=== PATIENT | male | born 1955 | race Caucasian/White ===

== ENCOUNTER 2025-03-20 22:16 | Inpatient (IN) | payer OTHER ==
[~2025-03-20] VITALS: Ht 172.7 cm; Wt 83.9 kg
[~2025-03-20 22:16] MED LIST: ASPI81CH; ASPI81CH PO; ASPI81EC; BUDE10.22 PO; CARV6.25; CARV6.25 PO; CLOP75; CYCL10 PO; Coreg12.5 MG PO; ENAL10; ENAL2.5; FISH1000; Fish Oil 10001000 MG PO; GABA300 PO; GAS X; Glimepiride2 MG PO; HYDACE5 PO; IBUP600; LIRA0.6P; LISI20; LISI20 PO; METF500 PO; METO25ER; OMEP10ER; OMEP20ER PO; OXYACE5T PO; PRAV40 PO; PRED20 PO; PROACE100 PO; Pravastatin Sod40 MG PO; Prilosec Otc20 MG PO; RXOXYACE PO; SPIR25 PO; Zithromax250 MG PO; [UNRECOGNIZED DRUG - REMARK]; [UNRECOGNIZED DRUG - REMARK]; [UNRECOGNIZED DRUG - REMARK]
[2025-03-20] MEDS ORDERED: Haloperidol Lactate Inj. 5 MG/ML Injection IM ONE (22:35)
[2025-03-21] MEDS ORDERED: LORazepam 2 MG/ML 1ML Injection IM ONE (00:30)
[2025-03-21 02:08] LABS: pH Blood Venous 7.29 (7.34-7.37)
[2025-03-21] MEDS ORDERED: Haloperidol Lactate Inj. 5 MG/ML Injection IV ONE (02:10)
[2025-03-21] MEDS ORDERED: LORazepam 2 MG/ML 1ML Injection IV PRN ×3 (02:10→20:35)
[2025-03-21 02:11] LABS: BASOPHILS ABSOLUTE AUTO 0.04 K/mm3 (0.00-0.23); BASOPHILS PERCENT AUTO 1 % (0-2); EOSINOPHILS ABSOLUTE AUTO 0.71 K/mm3 (0.00-0.68); EOSINOPHILS PERCENT AUTO 9 % (0-6); Hematocrit 36.5 % (37.0-53.0); Hemoglobin 12.1 g/dL (13.5-17.5); IMMATURE GRAN ABSOLUTE AUTO 0.02 K/mm3 (0.00-0.10); IMMATURE GRAN PERCENT AUTO 0 % (0-1); LYMPHOCYTES ABSOLUTE AUTO 2.28 K/mm3 (0.84-5.20); LYMPHOCYTES PERCENT AUTO 28 % (21-46); MONOCYTES ABSOLUTE AUTO 0.65 K/mm3 (0.16-1.47); MONOCYTES PERCENT AUTO 8 % (4-13); Mean Corpuscular HGB Conc 33.2 g/dL (31.5-36.5); Mean Corpuscular Volume 93 fL (80-100); NEUTROPHILS ABSOLUTE AUTO 4.34 K/mm3 (1.96-9.15); NEUTROPHILS PERCENT AUTO 54 % (41-73); NRBC ABSOLUTE 0.00 K/mm3 (0.00-0.02); NRBC Auto 0.0 /100 WBC (0.0-0.2); Platelet Count 213 K/mm3 (150-400); RDW Coefficient Variation 13.2 % (11.7-14.2); RDW Standard Deviation 44.8 fL (35.1-46.3)
[2025-03-21 02:27] LABS: Source, Urine Clean Catch
[2025-03-21 02:33] LABS: Bilirubin, Urine Neg (Neg); Glucose Qualitative, Urine Neg (Neg); Ketones, Urine Neg (Neg); Leukocyte Esterase, Urine Neg (Neg); Protein, Urine 2+ (Neg); Specific Gravity, Urine 1.020 (1.003-1.022); Urobilinogen, Urine NORM (Normal)
[2025-03-21 02:34] LABS: Ethanol (Alcohol), Blood, Med <3 mg/dL; Salicylate <1.7 mg/dL (2.8-20.0)
[2025-03-21 02:43] LABS: Acetaminophen, Random <2.0 ug/mL (10.0-30.0); Alanine Aminotransfer (ALT/SGP 13 U/L (12-78); Albumin, Blood 3.3 g/dL (3.4-5.0); Albumin/Globulin Ratio 0.9 (0.8-1.8); Anion Gap 12 mmol/L (3-11); Aspartate Aminotrans (AST/SGOT 20 U/L (12-37); Bilirubin, Total 0.5 mg/dL (0.1-1.0); Blood Urea Nitrogen 44 mg/dL (8-24); CO2, Blood 19 mmol/L (21-32); Calcium, Blood 8.4 mg/dL (8.5-10.1); Chloride, Blood 116 mmol/L (98-108); Creatinine, Blood 2.94 mg/dL (0.60-1.20); Globulin, Blood 3.5 g/dL (2.2-4.0); Glucose, Blood 97 mg/dL (70-99); Potassium, Blood 6.1 mmol/L (3.5-5.5); Sodium, Blood 141 mmol/L (136-145); Total Protein, Blood 6.8 g/dL (6.4-8.2)
[2025-03-21 02:53] LABS: U Amphetamine Screen Not Detected; U Barbituate Screen Not Detected; U Benzodiazapine Screen Not Detected; U Buprenorphine Screen Not Detected; U Cannabinoids Screen Not Detected; U Cocaine Screen Not Detected; U Methadone Screen Not Detected; U Methamphetamine Screen Not Detected; U Opiates Screen Not Detected; U Oxycodone Screen Not Detected; U Phencyclidine Screen Not Detected
[2025-03-21 02:54] LABS: Color, Urine Yellow (P-Yellow)
[2025-03-21 02:57] LABS: Red Blood Cells, Urine TNTC /hpf (0-2); White Blood Cells, Urine Not Seen /hpf (0-5)
[2025-03-21] MEDS ORDERED: NS 1,000 ML IV SCH ×3 (04:30→14:10)
[2025-03-21] MEDS ORDERED: Ondansetron HCl 2 MG / ML 2ML Vial IV PRN (05:10)
[2025-03-21] MEDS ORDERED: CALCIUM GLUC IN NACL, ISO-OSM 50 ML IV ONE (06:15)
[2025-03-21] MEDS ORDERED: Heparin Sodium,Porcine 5,000 UNIT/0.5 ML SDV SC SCH (09:00)
[2025-03-21 10:09] LABS: Anion Gap 11.0 mmol/L (3-11); Blood Urea Nitrogen 40.0 mg/dL (8-24); CO2, Blood 22.0 mmol/L (21-32); Calcium, Blood 8.4 mg/dL (8.5-10.1); Chloride, Blood 115.0 mmol/L (98-108); Creatinine, Blood 2.5 mg/dL (0.60-1.20); Glucose, Blood 92.0 mg/dL (70-99); Potassium, Blood 5.9 mmol/L (3.5-5.5); Sodium, Blood 142.0 mmol/L (136-145)
[2025-03-21 10:49] LABS: Anion Gap 10.0 mmol/L (3-11); Blood Urea Nitrogen 39.0 mg/dL (8-24); CO2, Blood 21.0 mmol/L (21-32); Calcium, Blood 8.3 mg/dL (8.5-10.1); Chloride, Blood 115.0 mmol/L (98-108); Creatinine, Blood 2.39 mg/dL (0.60-1.20); Glucose, Blood 94.0 mg/dL (70-99); Potassium, Blood 6.0 mmol/L (3.5-5.5); Sodium, Blood 140.0 mmol/L (136-145)
[2025-03-21] MEDS ORDERED: NEURONTIN300 MG PO (12:54)
[2025-03-21] MEDS ORDERED: QUETIAPINE FUMA25 MG PO (12:55)
[2025-03-21] MEDS ORDERED: QUETIAPINE FUM10011 PO (12:56)
[2025-03-21] MEDS ORDERED: Ativan1 MG PO (12:57)
[2025-03-21 15:06] LABS: Anion Gap 11.0 mmol/L (3-11); Blood Urea Nitrogen 35.0 mg/dL (8-24); CO2, Blood 18.0 mmol/L (21-32); Calcium, Blood 8.8 mg/dL (8.5-10.1); Chloride, Blood 117.0 mmol/L (98-108); Creatinine, Blood 2.22 mg/dL (0.60-1.20); Glucose, Blood 93.0 mg/dL (70-99); Potassium, Blood 7.0 mmol/L (3.5-5.5); Sodium, Blood 139.0 mmol/L (136-145)
--- NOTE | 2025-03-21 15:21 | NUR ---
Maladaptive and disruptive conduct order received and processed. Aggressive and problematic behavior appears non-volitional i.e. induced by underlying metabolic encephalopathy. Safety plan implemented with 1 to 1 monitoring. Will follow up.
--- NOTE | 2025-03-21 15:23 | NUR ---
RECIEVED REPORT FOR PT COMING TO MED FLOOR ROOM 345 AT 1500. CRITICAL LAB VALUE CALLED TO ER AND FORWARDED TO THIS RN AT [address] KNUTSON AND NOTIFIED HER. ORDER TO STOP ADMIT TO MEDICAL FLOOR AND CHANGE PT TO PCU STATUS. CALLED ER AND STOPPED TRANSFER OF PT TO MEDICAL FLOOR. STATUS CHANGED TO PCU. NOTIFIED MANUEL RN WHO NOTIFIED THE RN PARA PROFESSIONAL. CALLED DR PITTS BACK AND SHE REQUESTED THE PT TO BE CHANGED TO PCU STATUS AND ADMITTED THERE. ADMISSION ORDER NOW REFLECTS PCU STATUS. MD AWARE PT DID NOT TRANSFER TO ROOM 345 FROM THE ED AND HE IS STILL IN THE ER.
[2025-03-21] MEDS ORDERED: Sodium Bicarb 8.4% Inj 150 MEQ in Dextrose 5% 1,000 ML IV ONE (15:35)
[2025-03-21] MEDS ORDERED: LORazepam 2 MG/ML 1ML Injection IV ONE (18:00)
[2025-03-21] MEDS ORDERED: Haloperidol Lactate Inj. 5 MG/ML Injection IV PRN (18:00)
[2025-03-21] MEDS ORDERED: Sodium Bicarb 8.4% Inj 150 MEQ in Dextrose 5% 1,000 ML IV SCH ×2 (18:30→21:00)
--- NOTE | 2025-03-21 18:59 | NUR ---
PT ARRIVES TO PCU VIA GURNEY. PT YELLING AND CUSSING AT STAFF AT TIME. MULTIPLE STAFF REQUIRED TO PULL PT OVER TO BED DUE TO COMBATIVENESS. DR BUSTAMANTE CALLED FOR CONSULT. CALLED TO TALK ABOUT PLAN OF CARE AND WILL CALL BACK WHEN SHE KNOWS WHAT SHE WANTS TO DO. PT MEDICATED PER EMAR. NO DIRECTABLE AND PULLING AT CORDS AND WIRES. REPORT GIVEN TO KIKE SANCHEZ TO ASSUME CARE OF PT.
[2025-03-21] MEDS ORDERED: Insulin Regular 100 UNIT/ML 10ML Vial IV SCH (19:00)
[2025-03-21 19:29] LABS: Anion Gap 7.0 mmol/L (3-11); Blood Urea Nitrogen 30.0 mg/dL (8-24); CO2, Blood 23.0 mmol/L (21-32); Calcium, Blood 9.1 mg/dL (8.5-10.1); Chloride, Blood 115.0 mmol/L (98-108); Creatinine, Blood 1.86 mg/dL (0.60-1.20); Glucose, Blood 118.0 mg/dL (70-99); Potassium, Blood 5.3 mmol/L (3.5-5.5); Sodium, Blood 140.0 mmol/L (136-145)
[2025-03-21 20:05] VITALS: BP 149/76
[2025-03-21] MEDS ORDERED: Morphine Sulfate 20 MG/1ML 1 ML Oral Syringe SL PRN (20:25)
[2025-03-21] MEDS ORDERED: Morphine Sulfate 10 MG/ML 1MLSYR IV PRN (20:25)
[2025-03-21] MEDS ORDERED: Atropine Sulfate 1% Opth Soln 2ML BTL SL PRN (20:25)
--- NOTE | 2025-03-21 21:31 | NUR ---
PATIENT UPDATE THIS RN ASSUMED CARE OF PATIENT AT 1900. BEDSIDE SHIFT REPORT DONE WITH OSORIO SANCHEZ. OSORIO RN FINISHING GIVING ORDERS FOR HYPERKALEMIA. BICARB GTT INFUSING PER EMAR. PT AGGITATED. CURSING AND ATTEMPTING TO HIT STAFF. SITTER AT BEDSIDE. MEDICATED PER EMAR FOR AGGITATION WITH GOOD RESULTS WHEN PT LEFT ALONE AND HAVING LOW STIMULATION FROM STAFF. EASILY AGGITATED BY WIRES. REACHING OUT AND TALKING TO SELF. NOT FOLLOWING COMMANDS. CALL RECEIVED FROM KEYONA AND HER SISTER LIZ REGARDING DISCUSSING PLAN OF CARE FOR PATIENT. THIS RN SPOKE TO BOTH REGARDING CURRENT TREATMENT BEING DONE AND PATIENT'S DEMENTIA AND THE NEED TO SEDATE AND POSSIBLY RESTRAIN PATIENT TO GIVEN NECESSARY CARE/MEDS. THE AND SISTER HAD QUESTIONS REGARDING HOSPICE CARE AND WHAT THAT WOULD LOOK LIKE GOING FORWARD. THIS RN SPOKE TO THEM ABOUT MAKING THE PATIENT COMFORT CARE AND WHETHER THEY WOULD LIKE US TO HELP FIND PLACEMENT VERSUS GOING HOME ON HOSPICE. THIS RN ANSWERED QUESTIONS TO THE BEST OF HER ABILITY. THE AND SISTER STATED THAT THEY WOULD LIKE TO TALK ABOUT THE OPTIONS AND WOULD CALL THIS RN BACK. KEYONA'S NUMBER IS [phone] APPROXIMATELY 30 MINUTES LATER THE KEYONA AND SISTER LIZ CALLED THIS RN BACK AND STATED THAT THEY WOULD LIKE TO MOVE FORWARD WITH GETTING THE PATIENT ON HOSPICE AND STOPPING INVASIVE TREATMENT. THE WOULD LIKE ASSISTANCE FINDING HIM PLACEMENT AT [facility] OR [facility] IF POSSIBLE D/T HIS CARE BEING DIFFICULT FOR HER. CARE MANAGEMENT CONSULT PLACED ALONG WITH A HOSPICE REFERRAL ORDER. FAMILY DECLINED FURTHER QUESTIONS. THIS RN SPOKE TO THEM REGARDING CODE STATUS AND CHANGING PATIENT TO A DNR, FAMILY AGREED TO CODE STATUS OF DNR. NO FURTHER QUESTIONS AT THIS TIME. THIS RN ASSURED THEM THAT THEY COULD CALL BACK ANYTIME WITH FURTHER QUESTIONS. THIS RN CALLED MD KOENIG REGARDING PLAN OF CARE CHANGE. VERBAL ORDER TO MAKE COMFORT CARE AND CHANGE CODE STATUS. MD WILLINGHAM NOTIFIED OF PLAN OF CARE CHANGE BY ADMINISTRATION INTERNDANIEL WOLFF. CLINICAL SITTER AT BEDSIDE FOR SAFETY. TELE DC'D. PT MEDICATED PER EMAR FOR AGGITATION. SEE COMFORT CARE CHARTING. BED IN LOWEST POSITION AND CALL LIGHT WITHIN REACH.
--- NOTE | 2025-03-22 03:41 | NUR ---
TRANSFER NOTE SEE PREVIOUS NOTE. NO ACUTE CHANGES SINCE PREVIOUS NOTE. PT HAS BEEN RESTING COMFORTABLY SINCE GIVEN IV ATIVAN. PT REPOSITIONING SELF. INCONTINENT OF URINE, ATTENDS IN PLACE. PT STILL REPOSITIONING SELF, ASSISTANCE GIVEN PRN. SEIZURE PADS IN PLACE ON RAILS D/T PT OCCASIONALLY PUTTING LEGS OVER SIDE. SITTER REMAINS AT BEDSIDE. THIS RN GAVE REPORT TO KEITH SANCHEZ ON MEDICAL FLOOR. PT TO BE TRANSFERRED TO [facility] AT THIS TIME.
--- NOTE | 2025-03-22 04:23 | NUR ---
TRANSFER NOTE HANDOFF RECEIVED FROM HOUSEKEEPER CLEANING COOKINGDANIEL STOKES. PT TRANSFERED TO ROOM VIA GURNEY. PERSONAL POSSESSIONS WITH PT. PT BECAME AGITATED AND AGGRESSIVE ON TRANSFER. ANXIETY MEDICATION GIVEN WITH GOOD EFFECT.
--- NOTE | 2025-03-22 16:54 | NUR ---
PT HAS BEEN AOX0 THROUGHOUT SHIFT. PT STARTS TO BECOME RESTLESS AND ANXIOUS TRYING TO ROLL OR SIT UP HE ALSO GET MORE AGITATED WITH CARE AND EXTRA TOUCHING WHEN FAMILY IS AT BEDSIDE. PT HAS BEEN TREATED PER EMAR FOR ANXIETY AND PAIN. PT IS CURRENTLY RESTING PEACEFULLY CONDOM CATH IN PLACE. PT'S CASEMANGER REQUESTED PHYSICAL THERAPY EVALUATE AND TREAT. SPOKE WITH DR PITTS AND ORDER WAS DC'D NOT APPROPRIATED WITH PT'S MENTATION. SITTER IS IN ROOM MONITORING 1:1.
--- NOTE | 2025-03-22 17:21 | NUR ---
ATTEMPTED TO SEE PT THIS EVENING, HE ASKS IF WE CAN SPEAK IN THE AM ALONG WITH HIS . PLAN TO SEE THEM IN THE MORNING FOR GOALS OF CARE CONVERSATION.
--- NOTE | 2025-03-23 04:23 | NUR ---
SHIFT SUMMARY ADMITTED FOR ENCEPHALOPATHY. DNR CODE/COMFORT CARE. PLAN IS FOR [facility] PLACEMENT VS. HOME W/CAREGIVERS. ON RA. BEDREST. 2 PERSON CHANGE. PALLIATIVE CARE IS CONSULTED. ANXIETY MEDICATION HAS BEEN EFFECTIVE. A&O TO SELF ONLY, NOT REDIRECTABLE. INCONTINENT.
[2025-03-23] MEDS ORDERED: Haloperidol Lactate 2 MG/ML Conc 1ML Dose PO PRN (09:25)
[2025-03-23] MEDS ORDERED: Ativan1 MG PO (12:29)
[2025-03-23] MEDS ORDERED: HALO2 PO (12:30)
[2025-03-23] MEDS ORDERED: ATROPINE SULFATE2 M1 SL (12:30)
[2025-03-23] MEDS ORDERED: MORP20L SL (12:32)
[2025-03-23] MEDS ORDERED: TRANSDERM-SCOP1 EA10 TD (12:32)
--- NOTE | 2025-03-23 13:18 | NUR ---
DISCHARGE NOTE PT DISCHARGED TO [facility]. COMFORT CARE MEASURES IMPLEMENTED. HOSPICE TO ADMIT PATIENT SAME DAY. [facility] SENT [facility] TRANSPORT. FAMILY NOT AT BEDSIDE AT TIME OF DISCHARGE BUT ARE AWARE OF DISCHARGE DATE AND TIME. IV REMOVED PRIOR TO DC. MEDIATED PRIOR TO DC.
--- NOTE | 2025-03-23 15:30 | NUR ---
2 PILL BOTTLES WERE IN DRAWER THAT WERE NOT SENT TO [facility] WITH PATIENT. AFTER SPEAKING WITH [facility] ANDERSON SHE STATED SHE DOES NOT REQUIRE THESE ANYMORE. PT HAD A PRESCRIPTION FOR LORAZEPAM 1 MG. AND QUETIAPINE 100 MG. ASKING PHARMACY HOW TO DISPOSE OF. CALLED AND LEFT MESSAGE WITH PATIENTS FAMILY THAT WE WILL BE DISPOSING OF THESE PER [facility]'S OK, HOSPICE TO DISPENSE COMFORT CARE MEDS TO [facility].
== END 2025-03-23 13:13 | disposition hospice, home (50) | DRG 92 ==
LOC: ER 22:16 → ERHOLD 22:17 → ER 22:21 → MEDS 03-21 15:14 → PCU 03-21 15:35 → MEDS 03-21 15:35 → PCU 03-21 15:43 → MEDS 03-22 03:57 → ENPENDDIS 03-23 10:19 → MEDS 03-23 13:13
PROVIDERS: Emergency Medicine; Family Medicine; ADMIT Internal Medicine
DX: G92.8 Other toxic encephalopathy (principal); F03.918 Unspecified dementia, unspecified severity, with other behavioral disturbance; N17.9 Acute kidney failure, unspecified; I25.10 Atherosclerotic heart disease of native coronary artery without angina pectoris; I25.2 Old myocardial infarction; E87.5 Hyperkalemia; N18.9 Chronic kidney disease, unspecified; Z51.5 Encounter for palliative care; Z66 Do not resuscitate; D64.9 Anemia, unspecified; I44.0 Atrioventricular block, first degree; E86.0 Dehydration; Z95.5 Presence of coronary angioplasty implant and graft; Z98.890 Other specified postprocedural states; Z87.891 Personal history of nicotine dependence; Z79.82 Long term (current) use of aspirin; Z79.84 Long term (current) use of oral hypoglycemic drugs; Z79.899 Other long term (current) drug therapy; Z79.85 Long-term (current) use of injectable non-insulin antidiabetic drugs; Z88.8 Allergy status to other drugs, medicaments and biological substances
CPT/HCPCS: 70450; 76770; 80048; 80053; 80320; 81001; 82803; 82947; 85025; 93005; 93010; 96372; 96372-59; 96374; 96375; 96376; 99285-25; A6590; A9270; G0378; G0480; J0612; J1630; J1644; J1815; J2060; J7030; J7070